=== PATIENT | female | born 1975 | race Caucasian/White ===

== ENCOUNTER 2017-09-29 21:40 | Emergency (ER) | payer BC ==
[2017-09-29 21:54] VITALS: PULSE 90; TEMP 100.3; BMI 39.1
--- NOTE | 2017-09-29 21:56 | PDOC ---
Rapid Medical Evaluation Time Seen by Provider: 09/29/17 21:50 Medical Evaluation: Allergies Allergy/AdvReac Type Severity Reaction Status Date / Time No Known Drug Allergies Allergy Verified 10/15/15 07:33 09/29/17 21:50 The patient presents with a chief complaint of: Body aches, low grade fever, cough, sore throat, since yesterday. Seen in urgent care yesterday, flu and strep negative, cxr with no findings. I have performed a brief in-person evaluation of this patient; Pertinent physical exam findings: ambulatory, in no respiratory distress, wet cough, CTAB I have ordered the following: influenza, duoneb The patient will proceed to the ED for further evaluation.
[2017-09-29] MEDS ORDERED: ALBUTEROL SO4 2.5/IPRATROPIUM 0.5 INH SOL 3 ML VIAL.NEB. NEB ONE ×2 (21:57→23:37)
[2017-09-30] MEDS ORDERED: SODIUM CHLORIDE 1,000 ML IV STA
[2017-09-30] MEDS ORDERED: ONDANSETRON 4 MG/2 ML VIAL IVPUSH ONE
--- NOTE | 2017-09-30 00:01 | PDOC ---
History of Present Illness - General Chief Complaint: Cold Symptoms Stated Complaint: SOB, CHILLS, CHEST PAIN Time Seen by Provider: 09/29/17 21:50 Past History - Past Medical History Allergies/Adverse Reactions: Allergies Allergy/AdvReac Type Severity Reaction Status Date / Time prednisone Allergy Verified 09/29/17 21:55 Home Medications: Ambulatory Orders Mycophenolate Mofetil [Cellcept -] 1,000 mg PO BID 09/29/17 Azithromycin [Zithromax 250mg Tablets -] 250 mg PO UTDICT #6 tab 09/30/17 Anemia: No Asthma: Yes Cancer: No Cardiac Disorders: No CVA: No COPD: No CHF: No Dementia: No Diabetes: No GI Disorders: No Disorders: No HTN: No Hypercholesterolemia: No Liver Disease: No Seizures: No Thyroid Disease: No Other medical history: autoimmune disease [id number] - Surgical History Abdominal Surgery: No Appendectomy: No Cardiac Surgery: No Cholecystectomy: No Lung Surgery: No Neurologic Surgery: No Orthopedic Surgery: Yes (. R KNEE ARTHROSCOPY MENISCUS TEAR 2013) - Immunization History Immunization Up to Date: Yes - Suicide/Smoking/Psychosocial Hx Smoking Status: No Smoking History: Never smoked Have you smoked in the past 12 months: No Number of Cigarettes Smoked Daily: 0 If you are a former smoker, when did you quit?: YEARS AGO Hx Alcohol Use: No Drug/Substance Use Hx: No Substance Use Type: Alcohol, Marijuana Hx Substance Use Treatment: No *Physical Exam - Vital Signs Last Vital Signs Temp Pulse Resp BP Pulse Ox 100.3 F H 90 20 130/72 97 09/29/17 21:51 09/29/17 21:51 09/29/17 21:51 09/29/17 21:51 09/29/17 21:51 ED Treatment Course - LABORATORY CBC & Chemistry Diagram: 09/30/17 00:05 09/30/17 00:05 - ADDITIONAL ORDERS Additional order review: 09/29/17 23:32 Influenza Types A,B Antigen (NICHOLAS) - Preliminary Nasopharyngeal Swab - Preliminary - RADIOLOGY Radiology Studies Ordered: Category Date Time Status CHEST PA & LAT [RAD] Stat Radiology 09/30/17 00:00 Ordered - Medications Given in the ED: ED Medications Discontinued Medications Generic Name Dose Route Start Last Admin Trade Name Freq PRN Reason Stop Dose Admin Albuterol/Ipratropium 1 amp 09/29/17 21:57 09/29/17 23:40 Earlineb - NEB 09/29/17 21:58 1 amp ONCE ONE Administration *DC/Admit/Observation/Transfer Diagnosis at time of Disposition: Bronchitis - Discharge Dispostion Disposition: HOME - Prescriptions Prescriptions: Azithromycin [Zithromax 250mg Tablets -] 250 mg PO UTDICT #6 tab - Referrals - Patient Instructions Printed Discharge Instructions: DI for Acute Bronchitis Additional Instructions: drink plenty of fluids take ibuprofen every 6 hours as needed for fever take azithromycin as prescribed. follow up with your doctor as soon as possible. - Post Discharge Activity
[2017-09-30] MEDS ORDERED: IBUPROFEN 600 MG TABLET (FP) PO ONE ×2 (00:16)
[2017-09-30] MEDS ORDERED: ONDANSETRON 4 MG/2 ML VIAL ONE (00:17)
[2017-09-30 00:24] LABS: BASO % 0.9 % (0-2.0); HEMATOCRIT 39.9 % (32.4-45.2); HEMOGLOBIN 13.6 GM/dL (10.7-15.3); LYMPH % 28.6 % (8-40); MCH 30.4 pg (25.7-33.7); MCHC 34.2 g/dl (32.0-36.0); MEAN CELL VOLUME 88.9 fl (80-96); MEAN PLT VOLUME 8.1 fl (7.5-11.1); MONO % 11.5 % (3.8-10.2); PLATELET COUNT 232 K/MM3 (134-434); RBC 4.49 M/mm3 (3.60-5.2); RDW 13.3 % (11.6-15.6); WHITE BLOOD COUNT 8.1 K/mm3 (4.0-10.0)
[2017-09-30 00:44] LABS: ANION GAP 11 (8-16); BLOOD UREA NITROGEN 9 mg/dL (7-18); CALCIUM 8.5 mg/dL (8.5-10.1); CHLORIDE 101 mmol/L (98-107); CO2 25 mmol/L (21-32); CREATININE 0.8 mg/dL (0.55-1.02); GLUCOSE,RANDOM 98 mg/dL (74-106); SODIUM 137 mmol/L (136-145)
[2017-09-30 00:46] LABS: POTASSIUM 5.1 mmol/L (3.5-5.1)
[2017-09-30 01:48] LABS: VENOUS PC02 35.5 mmHg (38-52); VENOUS PH 7.39 (7.32-7.42); VENOUS PO2 42.4 mmHg (28-48)
[2017-09-30 02:05] VITALS: BP 108/60
--- NOTE | 2017-09-30 09:53 | EKG ---
Test Reason : Blood Pressure : / mmHG Vent. Rate : 079 BPM Atrial Rate : 079 BPM P-R Int : 144 ms QRS Dur : 078 ms QT Int : 362 ms P-R-T Axes : 039 003 015 degrees QTc Int : 415 ms NORMAL SINUS RHYTHM LOW VOLTAGE QRS NO PREVIOUS ECGS AVAILABLE Confirmed by MARYELLEN TRUJILLO MD ([id number]) on 09/30/2017 9:53:40 AM Referred By: Confirmed By:MARYELLEN TRUJILLO MD
== END 2017-09-30 02:07 | disposition home or self-care (01) ==
LOC: JER 21:40
PROC: 3E0F7GC Introduction of Other Therapeutic Substance into Respiratory Tract, Via Natural or Artificial Opening (ICD-10-PCS; principal; 2017-09-29)
DX: J40 Bronchitis, not specified as acute or chronic (principal)
CPT/HCPCS: 36415; 71046-TC-FY; 80048; 82803; 84703; 85025; 87804; 93005; 93010; 99283-25; J7030